=== PATIENT | male | born 1970 | race Caucasian/White ===

== ENCOUNTER 2021-04-14 12:05 | Emergency (ER) | payer OTHER ==
[~2021-04-14] VITALS: Ht 190.5 cm; Wt 93.0 kg
[~2021-04-14 12:05] MED LIST: ARIP10 PO; CARB100CH PO; CARI350 PO; CLON.5 PO; CYCL10 PO; DIAZ10 PO; DICL25ER PO; FLUO10 PO; FLUO20 PO; HYDACE5 PO; IBUP800 PO; LANS15EC PO; LITH300C PO; ONDA8 PO; QUET100 PO
[2021-04-14 13:13] LABS: BASOPHILS ABSOLUTE AUTO 0.01 K/mm3 (0.00-0.23); BASOPHILS PERCENT AUTO 0 % (0-2); EOSINOPHILS PERCENT AUTO 0 % (0-6); Hematocrit 44.3 % (37.0-53.0); Hemoglobin 14.6 g/dL (13.5-17.5); IMMATURE GRAN ABSOLUTE AUTO 0.01 K/mm3 (0.00-0.10); IMMATURE GRAN PERCENT AUTO 0 % (0-1); LYMPHOCYTES PERCENT AUTO 30 % (21-46); MONOCYTES ABSOLUTE AUTO 0.58 K/mm3 (0.16-1.47); MONOCYTES PERCENT AUTO 15 % (4-13); Mean Corpuscular Volume 88 fL (80-100); Mean Platelet Volume 10.7 fL (9.1-12.4); NEUTROPHILS PERCENT AUTO 55 % (41-73); Platelet Count 128 K/mm3 (150-400); RDW Coefficient Variation 12.8 % (11.7-14.2); RDW Standard Deviation 41.3 fL (35.1-46.3); Red Blood Cell Count 5.04 M/mm3 (4.30-5.90)
[2021-04-14 13:34] LABS: Alanine Aminotransfer (ALT/SGP 47 U/L (12-78); Albumin, Blood 3.9 g/dL (3.4-5.0); Alk Phos 114 U/L (50-136); Anion Gap 5 mmol/L (6-16); Aspartate Aminotrans (AST/SGOT 40 U/L (12-37); Bilirubin, Total 0.4 mg/dL (0.1-1.0); Blood Urea Nitrogen 16 mg/dL (8-24); Bun/Creatinine Ratio 15.5 (12.0-20.0); CO2, Blood 26 mmol/L (21-32); Calcium, Blood 9.2 mg/dL (8.5-10.1); Chloride, Blood 106 mmol/L (98-108); Creatinine, Blood 1.03 mg/dL (0.60-1.20); Glomerular Filtration Rate >60 (60-); Glucose, Blood 109 mg/dL (70-99); Potassium, Blood 4.2 mmol/L (3.5-5.5); Sodium, Blood 137 mmol/L (136-145); Total Protein, Blood 7.9 g/dL (6.4-8.2)
[2021-04-14 13:40] LABS: Lithium <0.20 mmol/L (0.60-1.20)
[2021-04-14 13:46] LABS: Acetaminophen, Random <2.0 ug/mL (10.0-30.0); Ethanol (Alcohol), Blood, Med <3 mg/dL; Salicylate <1.7 mg/dL (2.8-20.0)
[2021-04-14 14:04] LABS: Carbamazepine <0.5 ug/mL (4.0-12.0)
[2021-04-14] MEDS ORDERED: PRAZ1 PO (14:46)
[2021-04-14] MEDS ORDERED: SILDENAFIL CIT100 MG PO (14:46)
[2021-04-14] MEDS ORDERED: MELA3 PO (14:47)
[2021-04-14] MEDS ORDERED: ESCI20 PO (14:47)
[2021-04-14] MEDS ORDERED: GABA300 PO ×2 (14:48)
[2021-04-14] MEDS ORDERED: PANT40 PO (14:49)
[2021-04-14] MEDS ORDERED: BENADRYL25 MG PO (14:49)
[2021-04-14] MEDS ORDERED: ONDA4 PO (16:01)
== END 2021-04-14 16:07 | disposition home or self-care (01) ==
LOC: ER 12:05
PROVIDERS: Emergency Medicine; Physician Assistant
DX: U07.1 COVID-19 (principal); J12.82 Pneumonia due to coronavirus disease 2019
CPT/HCPCS: 36415; 71260; 80053; 80156; 80178; 83605; 84484; 85025; 93005; 93010; 96361; 96374; 99284-25; G0480; J2405; J7030; Q9967